=== PATIENT | male | born 1960 | race Caucasian/White ===

== ENCOUNTER → 2022-12-25 00:59 | Outpatient (CLI) | payer OTHER, SELFPAY ==
--- NOTE | 2022-12-25 07:30 | DI.RAD_ITS ---
Exam(s) XR FOOT LT COMPLETE EXAM: XR FOOT LT COMPLETE CLINICAL HISTORY: Painful lt foot bunion,M79.672,M21.612. TECHNIQUE: 2D digital imaging was performed of the left foot. Three images were obtained. AP, obli que and lateral views were obtained. COMPARISON: No exams were available for comparison FINDINGS: BONES: No acute fracture is present. No bony destructive lesion is seen. There is a plantar calcaneal spur. There is a hallux valgus deformity. JOINTS: No dislocation present. Degenerative changes are seen at the 1st MTP joint with joint space n arrowing and osteophytes present. SOFT TISSUE: Normal. IMPRESSION: Hallux valgus deformity. Degenerative changes of the 1st MTP joint. DATA REPOSITORY: RADIATION DOSE DELIVERED:
== END ==
PROVIDERS: PCP Family Medicine; Visit Provider Podiatrist
DX: M21.612 Bunion of left foot (principal); M79.672 Pain in left foot
CPT/HCPCS: 73630

== ENCOUNTER 2023-06-24 06:16 | Day surgery (SDC) | payer OTHER, SELFPAY ==
[2023-06-24] VITALS (9 sets, daily range): BP systolic 140–152; BP diastolic 73–95; PULSE 57–80; RESP 15–18; TEMP 36.1–36.6; O2SAT 95–98; BMI 23.4
--- NOTE | 2023-06-24 06:57 | ANES.PREOP_ITS ---
General Info Date of Service Date Performed: 06/24/23 Height: 5 ft 9 in Weight: 72.1 kg Body Mass Index (BMI): 23.4 Surgical Procedure: Operation Date: 06/24/23 07:40 Proposed Procedure Side Surgeon p Bunionectomy VS Arthrodesis 1st Metatarsophalangeal Joint, Possible Ania/Hammertoe Correction 2nd Toe Left Lizette Nicholson DPM Meds Allergies and Home Medications Allergies Allergy/AdvReac Type Severity Reaction Status Date / Time venom-honey bee Allergy Severe Anaphylaxis Verified 06/24/23 06:40 Home Medication Medication Instructions Recorded bupropion HCl 450 mg 24 hr tablet, 450 mg PO DAILY 01/02/23 extended release buspirone 10 mg tablet 10 mg PO TID PRN 01/02/23 epinephrine 0.3 mg/0.3 mL 0.3 mg IM Q5-15M PRN 01/02/23 injection, auto-injector escitalopram oxalate 10 mg tablet 20 mg PO DAILY 01/02/23 (Lexapro) lorazepam 1 mg tablet 0.5 mg PO BID PRN 01/02/23 Current Visit Medications: Current Medications Generic Name Dose Route Start Last Admin Trade Name Freq PRN Reason Stop Dose Admin Celecoxib 200 mg 06/24/23 06:00 Celecoxib 200 Mg Cap PO 06/24/23 23:59 PREOP AMI Gabapentin 300 mg 06/24/23 06:00 Gabapentin 300 Mg Cap PO 06/24/23 23:59 PREOP AMI Ringer's Solution 1,000 mls @ 30 mls/hr 06/24/23 06:00 IV 06/24/23 23:59 INFUSION AMI Cefazolin Sodium/Dextrose 2 gm in 50 mls @ 100 mls/hr 06/24/23 06:00 Ancef Duplex IVPB 06/24/23 23:59 PREOP AMI IV Miscellaneous Supplies 1 each 06/24/23 06:00 Iv Access IV 06/24/23 23:59 DIRECTED AMI Sodium Chloride 0 ml 06/24/23 06:00 Normal Saline Flush 10 Ml Syr IV 06/24/23 23:59 PRN PRN Sodium Chloride 0 ml 06/24/23 06:00 Normal Saline 10 Ml Vial IJ 06/24/23 23:59 DIRECTED PRN Sterile Water 0 ml 06/24/23 06:00 Water,Injection,Sterile 10 Ml Vial IJ 06/24/23 23:59 DIRECTED PRN PFSH Active Problems Active Problems: Problem Status Onset Code Chronic gout [id number] Mild alcohol use disorder F10.10 Depression F32.A Anxiety F41.9 Pain in left foot M79.672 Hammertoe of left foot M20.42 Hallux rigidus, left foot M20.22 Bunion, left foot M21.612 Surgical History Surgical History H/O hernia repair Tobacco Smoking/Tobacco Use Status: Never Alcohol Alcohol Intake: current Alcohol intake frequency: a few times a month Substance Use Substance use: Daily Substance use type: marijuana Vital Signs and Lab Results Vital Signs Most Recent Vital Signs in EMR: Most Recent Vital Signs Temp Pulse Resp BP Pulse Ox 36.3 C L 80 18 140/95 H 95 06/24/23 06:15 06/24/23 06:15 06/24/23 06:15 06/24/23 06:15 06/24/23 06:15 Lab Results 06/24/23 06:00 06/24/23 06:00 Blood Type / Crossmatch: 2 No Data to Display Complete Blood Count: 2 White Blood Count Pending 06/24/23 06:00 Red Blood Count Pending 06/24/23 06:00 Hemoglobin Pending 06/24/23 06:00 Hematocrit Pending 06/24/23 06:00 Platelet Count Pending 06/24/23 06:00 Complete Metabolic Panel: 2 Sodium Pending 06/24/23 06:00 Potassium Pending 06/24/23 06:00 Chloride Pending 06/24/23 06:00 Carbon Dioxide Pending 06/24/23 06:00 BUN Pending 06/24/23 06:00 Creatinine Pending 06/24/23 06:00 Est GFR (CKD-EPI 2020) Pending 06/24/23 06:00 Calcium Pending 06/24/23 06:00 Glucose Pending 06/24/23 06:00 Liver Function Panel: 2 No Data to Display Coagulation Panel: 2 No Data to Display Cardiac Panel: 2 No Data to Display Arterial Blood Gas: 2 No Data to Display Venous Blood Gas: 2 No Data to Display Pancreas Panel: 2 No Data to Display Thyroid Panel: 2 No Data to Display Infectious Disease: 2 No Data to Display Blood Cultures: 2 No Data to Display Toxicology Panel: 2 No Data to Display Anesthesia Assessment and Plan Anesthesia History Personal History: No History of Anesthesia Complications Family History: No Family History of Anesthesia Complications Exercise Tolerance Exercise Tolerance: Metabolic Equivalents>4 Cardiac & Pulmonary Exam Cardiac Exam: Normal S1/S2 Heart Sounds Pulmonary Exam: Clear Bilateral Breath Sounds Implantable Cardiac Device Does patient have a Pacemaker or an ICD?: No Airway Exam Known Difficult Airway: No Mallampati Class: 2 Mouth Opening: Normal (> 3cm) Thyromental Distance: Greater than 3 cm Facial Hair: Full Kee Neck Range of Motion: Full ROM Neck Circumference: Normal Teeth Condition: Normal Dentition ASA Classification ASA Score: ASA 2 Emergency Case?: No NPO Status NPO Status: NPO Clears >2 hours, Solids >8 hours Anesthesia Plan Resuscitation Status: Full Code Anesthesia Technique: General Anesthesia Airway Planned: LMA Monitors Used: Standard Monitors and SedLine
[2023-06-24] MEDS: Lactated Ringers 1,000 ML 30 ML IV (07:04)
[2023-06-24] MEDS: Celecoxib 200 MG CAP PO (07:05)
[2023-06-24] MEDS: Gabapentin 300 MG CAP PO (07:06)
[2023-06-24 07:12] LABS: Anion Gap 11.1 mmol/L (3-11); BUN 14 mg/dL (7-18); CO2 24.9 mmol/L (21.0-32.0); CREATININE 1.2 mg/dL (0.70-1.30); Calcium 8.6 mg/dL (8.5-10.1); Chloride 108 mmol/L (98-107); Estimated GFR 68.38 (mL/min/1.73m2); Glucose 104 mg/dL (74-106); Potassium 3.8 mmol/L (3.5-5.1); Sodium 144 mmol/L (136-145)
[2023-06-24 07:13] LABS: Abs Immature Grans 0.02 10^3/uL (0.0-0.06); Absolute Basophil Count 0.06 10^3/uL (0.0-0.2); Absolute Eosinophil Count 0.07 10^3/uL (0.0-0.7); Absolute Lymphocyte Count 1.54 10^3/uL (1.2-3.4); Absolute Monocyte Count 0.55 10^3/uL (0.1-0.8); Absolute Neutrophil Count 3.53 10^3/uL (1.2-6.7); Eosinophils % 1.2; HGB 14.3 g/dL (13.5-17.5); Immature Grans % 0.3; Lymphocytes % 26.7; MCH 31.2 pg (27.0-33.0); MCV 92 fL (80-95); MPV 9.2 fL (8.0-11.0); Monocytes % 9.5; Neutrophils % 61.3; Platelet Count 235 10^3/uL (130-400); RBC 4.58 10^6/uL (4.36-5.78); RDW 12.2 % (11.8-14.1); RDW-SD 41.3 fL; WBC 5.77 10^3/uL (4.4-10.8)
--- NOTE | 2023-06-24 07:46 | W.PREOPHP ---
Assessment and Plan Assessment and plan (1) Hallux rigidus, left foot: Status: Acute Assessment and plan: Patient was seen and evaluated today. He has a large hallux valgus deformity as well as hallux rigidus. We are planning to proceed with metatarsophalangeal joint arthrodesis to the left first metatarsophalangeal joint. I discussed potentially doing a Ania osteotomy with plantar plate repair and hammertoe correction to the left second toe. Currently, he denies any pain and would like to proceed without this procedure since he has no pain. I discussed the risk and benefits of this procedure as well. Planned procedure: Left first metatarsophalangeal joint arthrodesis, possible calcaneal graft harvest and implantation, possible Colton osteotomy to the left foot. I discussed the risks benefits and possible complications of the procedure including but not limited to pain, nerve pain, CRPS, infection, infection to the bone, nonhealing, delayed healing, nonunion, malunion, delayed union, wound dehiscence, bleeding, hematoma formation, seroma formation, hallux varus, hallux malleus, need for further surgery or amputation, poor outcome, DVT, PE, CRPS, stroke, [place] or with anesthesia. No change since last history and physical by his primary. Chart and imaging reviewed. All labs reviewed. No contraindications were noted to the procedure at this time. Patient has an appointment scheduled for postoperative evaluation on . (2) Bunion, left foot: Status: Acute (3) Pain in left foot: Status: Acute (4) Hammertoe of left foot: Status: Acute History of Present Illness Narrative: Patient here today for athrodesis to the left first metatarsophalangeal joint of the left foot. He notices pain to the left first metatarsophalangeal joint for significant period of time. Denies pain to the left second metatarsophalangeal joint or the hammertoe. Patient states he has been n.p.o. midnight. Denies any new medical or pedal complaints today. Recently had a prostate biopsy which went uneventfully and currently has no pain. Denies nausea vomiting chills fever diarrhea. Review of Systems Constitutional Constitutional: Denies chills, Denies excessive sweating, Denies fever(s), Denies night sweats and Denies weight loss Cardiovascular Cardiovascular: Denies chest pain with activity, Denies diaphoresis, Denies syncope and Denies dyspnea Respiratory Respiratory: Denies dyspnea Musculoskeletal Musculoskeletal: Reports arthralgias Comments: Left first metatarsophalangeal joint pain. Neurologic Neurologic: Denies syncope Endocrine Endocrine: Denies excessive sweating PFSH All Active Problems Post-op pain (Acute) Chronic gout (Acute) Mild alcohol use disorder (Acute) Depression (Chronic) Anxiety (Chronic) Pain in left foot (Acute) Hammertoe of left foot (Acute) Hallux rigidus, left foot (Acute) Bunion, left foot (Acute) Surgical History H/O hernia repair Family History Mother High cholesterol Father Hypertension Heart disease Stroke Colon cancer High cholesterol Social History Smoking/Tobacco Use Status: Never Smoking risk assessment performed?: Yes Alcohol Intake: current Alcohol Intake frequency: a few times a month Drug use: Daily Substance use type: marijuana Housing: house Do you feel safe at home: Yes Do you feel safe in your relationship?: Yes Meds Allergies and Home Medications Allergies Allergy/AdvReac Type Severity Reaction Status Date / Time venom-honey bee Allergy Severe Anaphylaxis Verified 06/24/23 06:40 Home Medications Medication Instructions Recorded Confirmed Type bupropion HCl 450 mg 24 hr tablet, 450 mg PO DAILY 01/02/23 06/24/23 History extended release buspirone 10 mg tablet 10 mg PO TID PRN 01/02/23 06/24/23 History epinephrine 0.3 mg/0.3 mL 0.3 mg IM Q5-15M PRN 01/02/23 06/24/23 History injection, auto-injector escitalopram oxalate 10 mg tablet 20 mg PO DAILY 01/02/23 06/24/23 History (Lexapro) lorazepam 1 mg tablet 0.5 mg PO BID PRN 01/02/23 06/24/23 History oxycodone-acetaminophen 7.5 mg-325 1 tab PO Q8H 3 days #9 tabs 06/24/23 Rx mg tablet (Percocet) Exam Resp Effort & Inspection: normal respiratory effort, able to speak in complete sentences and no cough Auscultation: clear to auscultation bilaterally Cardio Jugular venous pressure: no JVD Rate: regular rate Rhythm: regular rhythm Heart Sounds: S1 normal and S2 normal Pulses: posterior tibial pulses present and dorsalis pedis present Results Labs 06/24/23 06:55 06/24/23 06:55 Labs: Laboratory Results - last 24 hr 06/24/23 06:55 WBC 5.77 RBC 4.58 Hgb 14.3 Hct 42.0 MCV 92 MCH 31.2 MCHC 34.0 RDW 12.2 Plt Count 235 MPV 9.2 Immature Gran % 0.3 Neutrophils % 61.3 Lymphocytes % 26.7 Monocytes % 9.5 Eosinophils % 1.2 Basophils % 1.0 Nucleated RBC % 0.0 Absolute Neutrophils 3.53 Absolute Lymphocytes 1.54 Absolute Monocytes 0.55 Absolute Eosinophils 0.07 Absolute Basophils 0.06 Sodium 144 Potassium 3.8 Chloride 108 H Carbon Dioxide 24.9 Anion Gap 11.1 H BUN 14 Creatinine 1.2 Est GFR (CKD-EPI 2020) 68.38 Glucose 104 Calcium 8.6 Last Vital Signs Temp 97.3 F L 06/24/23 06:15 Pulse 80 06/24/23 06:15 Resp 18 06/24/23 06:15 BP 140/95 H 06/24/23 06:15 Pulse Ox 95 06/24/23 06:15
[2023-06-24] MEDS: ceFAZolin 2 GM/50 ML BAG IVPB (08:16)
[2023-06-24] MEDS: Lidocaine 1% Pres-Free 30 ML VIAL ×2 (08:44→09:41)
--- NOTE | 2023-06-24 11:05 | DI.RAD_ITS ---
Exam(s) XR FOOT LT LIMITED EXAM: XR FOOT LT LIMITED CLINICAL HISTORY: left foot, bunion. TECHNIQUE: 2D and realtime digital imaging was performed. COMPARISON: CR XR FOOT LT COMPLETE from 12/25/2022 FINDINGS: Hard copy images show bunionectomy and placement of a plate across the 1st MTP joint. Please see procedure note for details. Fluoro time: 105.4seconds RADIATION DOSE DELIVERED: Kar=1.52 mGy
--- NOTE | 2023-06-24 11:30 | DI.RAD_ITS ---
Exam(s) XR FOOT LT COMPLETE EXAM: XR FOOT LT COMPLETE CLINICAL HISTORY: Post op. TECHNIQUE: 2D digital imaging was performed. Three views. COMPARISON: CR XR FOOT LT COMPLETE from 12/25/2022 XR FOOT LT LIMITED from 06/24/2023 FINDINGS: A fixation plate is been placed across the 1st MTP joint for fusion. Bunionectomy at the 1st metatar rafiq head. Adjacent soft tissue swelling. Heel spur. IMPRESSION: Unremarkable radiographs of the left foot. Postsurgical changes of the great toe. DATA REPOSITORY: RADIATION DOSE DELIVERED:
--- NOTE | 2023-06-24 11:48 | W.ANESPOSTOP ---
Postoperative Evaluation Date, Time and Location Date Performed: 06/24/23 Time Performed: 11:48 Patient Location: PACU Vital Signs Most Recent Imported Vital Signs: Most Recent Vital Signs Temp Pulse Resp BP Pulse Ox 36.1 C L 66 16 150/77 H 98 06/24/23 11:30 06/24/23 11:30 06/24/23 11:30 06/24/23 11:30 06/24/23 11:30 Pain Score Most Recent Pain Score: Most Recent Pain Score Pain Level 0 06/24/23 11:30 Assessment Mental Status: Awake (Alert & Oriented to Patient Baseline) Airway and Respiratory Function: Patent airway with normal (patient baseline) respiratory exam Cardiovascular Function: Hemodynamically Stable Hydration Status: Adequately Hydrated Nausea & Vomiting: No Nausea or Vomiting Pain: Pt. Denies Any Pain Peripheral Nerve Block: Patient did not receive a nerve block
--- NOTE | 2023-06-24 12:32 | ROE_ITS ---
Date of service: 06/24/23 Time of Service: 08:00 Operative Note Operative Note DATE OF PROCEDURE: 06/24/23 PRE-OP DIAGNOSIS: Hallux rigidus left foot POST-OP DIAGNOSIS: same PROCEDURE: First metatarsophalangeal joint arthrodesis, left foot SURGEON: Lizette Nicholson ANESTHESIA TYPE: Local By Surgeon Refer to Anesthesia Record ESTIMATED BLOOD LOSS: 20 TOURNIQUET TIME: 94 COMPLICATIONS: None Patient was transported to: PACU Patient's condition: stable Implants: Arthrex MaxForce MTP compression plate, Arthrex 3 mm flat head cortical screw 18 mm x 1, Arthrex 3 mm low-profile screws, KRISTY, titanium 12 mm x 3, 16 mm x 1 Indications: This is a 62-year-old male patient with pain to the left first metatarso phalangeal joint. Patient has exhausted all conservative treatment options at this time. I discussed the benefits of the procedure including the risks including but not limited to pain, nerve pain, CRPS, delayed healing, nonhealing, nonunion, malunion, delayed union, wound dehiscence, infection, infection to bone, need for further surgery or amputation, poor results, dorsiflex toe, plantarflex toe, need for further surgery or amputation, risk for DVT, PE, stroke, [place] or even with anesthesia. Patient understands and agrees. No guarantees or warranties were made or implied. Patient agreed to the procedure. Consent form was signed reviewed in chart. No contraindications noted to the procedure. Findings: Extensive cartilage damage to the right first metatarsal head, tightness of the joint capsule Procedure Description: Patient was brought to the operating room placed on the operating table in supine position. Following sedation, local anesthesia was obtained using 20 mL of 1% lidocaine plain. An ankle tourniquet was applied to the patient's left ankle.. The left foot was then scrubbed prepped and draped in the usual aseptic manner. The left lower extremity was then exsanguinated using an Esmarch and the tourniquet was then inflated. Attention was then directed to the dorsal aspect of the left first metatarsal phalangeal joint, an approximately 7 cm linear longitudinal incision was planned medial and parallel to the tendon of the extensor hallucis longus. Incision was then made using a sterile #15 blade. Incision was deepened through skin and subcutaneous tissue using sharp and blunt dissection. Care was taken to identify and retract all vital neurovascular structures. All bleeders were ligated and cauterized as necessary. Next, a linear longitudinal incision was made and a capsulotomy was performed a little over the dorsal aspect of the first metatarsophalangeal joint. The periosteal and capsular structures were then carefully dissected free and reflected medially and laterally thus exposing the head of the first metatarsal. Next, a guidewire was placed centrally in the head of the first metatarsal, this was confirmed using intraoperative fluoroscopy. Next a reamer was used to remove all cartilage from the first metatarsal head. This step was then repeated at the proximal phalanx. The guidewire was then removed. Next using a sagittal saw the dorsal medial prominences were then removed from the base of the proximal phalanx and the head of the metatarsal a rongeur was used to remove any remaining prominences. Next, a guidewire was used to fenestrate either aspect of the joint. At this time the head of the metatarsal and the base of the proximal phalanx were compressed and held together in place with a K wire for temporary fixation intraoperative fluoroscopy was used to facilitate placement. The tourniquet was then deflated at 94 minutes at this time. Next an Arthrex plate was then applied with screws following manufactures guidelines. Positioning was then confirmed using intraoperative fluoroscopy and was noted to be appropriate although slightly dorsiflexed with some rotation residual in the hallux. The incision was then flushed with copious amounts of sterile saline. The periosteal and capsular structures were then reapproximated using 3-0 Vicryl. Subcutaneous tissue was then closed with 4-0 Vicryl. Skin edges were reapproximated using 4-0 nylon. Upon completion of the procedure, the incision was then dressed with Xeroform gauze, 4 x 4, Kerlix and an Flaco wrap. The patient tolerated the procedure and anesthesia well with vital signs stable and vascular status intact to the left foot. Patient notes transferred to PACU for further monitoring. Patient to remain strictly nonweightbearing to the left lower extremity with the use of a boot. Postoperative and proximal structures were provided to the patient. Patient was prescribed Percocet for 3 days postoperatively. Patient has appointment with [facility] on .
--- NOTE | 2023-07-22 10:10 | W.PM.DSUDISC ---
Date of service: 06/24/23 Time of Service: 07:30 Discharge Plan Disposition Patient Disposition: Home Condition: Stable Discharge Details Attending Provider: Lizette Nicholson Primary Care Provider: Matheus Kumar Home Meds and New Rx's Prescriptions: No Action epinephrine 0.3 mg/0.3 mL auto-injector 0.3 mg IM Q5-15M PRN Rx Instructions: do not exceed 3 doses per episode buspirone 10 mg tablet 10 mg PO TID PRN bupropion HCl 450 mg tablet extended release 24 hr 450 mg PO DAILY lorazepam 1 mg tablet 0.5 mg PO BID PRN escitalopram oxalate [Lexapro] 10 mg tablet 20 mg PO DAILY bupropion HCl 450 mg tablet extended release 24 hr 450 mg PO DAILY Discharge Instructions Stand Alone Forms: Anesthesia Discharge Inst., Podiatry Instructions-DSU, Jennifer Garcia (DSU) Remove Dressings/Wound Care:: Do Not Remove Diet:: Normal Diet Discharge Data Discharge Date/Time-TO BE ENTERED AT DEPARTURE: 06/24/23 13:40 DS: Diagnosis Discharge Diagnosis (1) Hallux rigidus, left foot: Status: Acute (2) Bunion, left foot: Status: Acute (3) Pain in left foot: Status: Acute (4) Hammertoe of left foot: Status: Acute
== END 2023-06-24 13:40 | disposition home or self-care (01) ==
PROVIDERS: PCP Family Medicine; Visit Provider Podiatrist
PROC: (CPT 28750; principal; 2023-06-24 07:30)
DX: M20.22 Hallux rigidus, left foot; M20.42 Other hammer toe(s) (acquired), left foot; M21.612 Bunion of left foot
CPT/HCPCS: 28750; 00123; 36415; 80048; 73620; 73630; 85014; 85018; 85025; J0131; J0665; J0690; J1100; J2001; J2250; J2371; J2405; J2704

== ENCOUNTER → 2023-07-04 01:44 | Outpatient (CLI) | payer OTHER, SELFPAY ==
--- NOTE | 2023-07-04 11:23 | DI.RAD_ITS ---
Exam(s) XR FOOT LT COMPLETE EXAM: XR FOOT LT COMPLETE CLINICAL HISTORY: Evaluate for fusion/postoperative changes,bunion lt foot, m21.612,hallux. TECHNIQUE: 2D digital imaging was performed of the left foot. Three images were obtained. AP, obli que and lateral views were obtained. COMPARISON: CR XR FOOT LT COMPLETE from 12/25/2022 CR XR FOOT LT COMPLETE from 06/24/2023 FINDINGS: BONES: No acute fracture is present. No bony destructive lesion is seen. There is a small plantar clovis caneal spur. There are again seen postsurgical changes of a bunionectomy. The joint space is still visualized but less apparent compared to the prior examination. JOINTS: No dislocation present. The joint spaces are otherwise well maintained. SOFT TISSUE: There has been a decrease in the soft tissue swelling around the 1st MTP joint. IMPRESSION: Stable postsurgical changes of a 1st MTP joint fusion. DATA REPOSITORY: RADIATION DOSE DELIVERED:
== END ==
PROVIDERS: PCP Family Medicine; Visit Provider Podiatrist
DX: M20.22 Hallux rigidus, left foot (principal); M21.612 Bunion of left foot; Z98.890 Other specified postprocedural states
CPT/HCPCS: 73630

== ENCOUNTER → 2023-07-25 00:03 | Outpatient (CLI) | payer OTHER, SELFPAY ==
--- NOTE | 2023-07-25 14:39 | DI.RAD_ITS ---
Exam(s) XR FOOT LT COMPLETE EXAM: XR FOOT LT COMPLETE CLINICAL HISTORY: Post op,eval for fusion,lt bunion,hallux rigidus,m20.22,m21.612. TECHNIQUE: 2D digital imaging was performed. Three views. COMPARISON: CR XR FOOT LT COMPLETE from 07/04/2023 FINDINGS: BONES: There has been no change in the alignment of the hardware spanning the 1st MTP joint. Bunione ctomy site appears unchanged. No bony destructive lesion is seen. JOINTS: No dislocation present. SOFT TISSUE: Mild swelling around 1st MTP joint. IMPRESSION: Stable postsurgical appearance. DATA REPOSITORY: RADIATION DOSE DELIVERED:
== END ==
PROVIDERS: PCP Family Medicine; Visit Provider Podiatrist
DX: Z98.890 Other specified postprocedural states (principal)
CPT/HCPCS: 73630

== ENCOUNTER → 2023-08-07 02:02 | Outpatient (CLI) | payer OTHER, SELFPAY ==
--- NOTE | 2023-08-07 08:00 | DI.RAD_ITS ---
Exam(s) XR FOOT LT COMPLETE EXAM: XR FOOT LT COMPLETE CLINICAL HISTORY: Post op,hallux rigidus,lt foot,m20.22. TECHNIQUE: 2D digital imaging was performed. Three views. COMPARISON: CR XR FOOT LT COMPLETE from 07/25/2023 FINDINGS: BONES: Hardware is again noted at the dorsal aspect of the 1st MTP joint. Bunionectomy site appears unchanged. no acute fracture is present. No bony destructive lesion is seen. Heel spurs again not ed. JOINTS: No dislocation present. SOFT TISSUE: Mild soft tissue swelling adjacent to the 1st metatarsal head. IMPRESSION: Stable postsurgical appearance. DATA REPOSITORY: RADIATION DOSE DELIVERED:
== END ==
PROVIDERS: PCP Family Medicine; Visit Provider Podiatrist
DX: M20.22 Hallux rigidus, left foot (principal); Z98.890 Other specified postprocedural states
CPT/HCPCS: 73630

== ENCOUNTER → 2023-08-22 02:44 | Outpatient (CLI) | payer OTHER, SELFPAY ==
--- NOTE | 2023-08-22 12:15 | DI.RAD_ITS ---
Exam(s) XR FOOT LT COMPLETE EXAM: XR FOOT LT COMPLETE CLINICAL HISTORY: post op, PAIN, HALLUX RIGIDUS, G89.18, M20.22. TECHNIQUE: 2D digital imaging was performed. COMPARISON: CR XR FOOT LT COMPLETE from 08/07/2023 FINDINGS: 3 views Again noted is dorsal fusion hardware at the great toe metatarsophalangeal joint which appears stable . No loosening and no evidence of osteomyelitis. No other osseous findings. Bone density normal. Small inferior calcaneal spur again noted. IMPRESSION: Stable appearance DATA REPOSITORY: RADIATION DOSE DELIVERED:
== END ==
PROVIDERS: PCP Family Medicine; Visit Provider Podiatrist
DX: G89.18 Other acute postprocedural pain (principal); M20.22 Hallux rigidus, left foot
CPT/HCPCS: 73630

== ENCOUNTER → 2023-09-17 01:55 | Outpatient (CLI) | payer OTHER, SELFPAY ==
--- NOTE | 2023-09-17 13:13 | DI.RAD_ITS ---
Exam(s) XR FOOT LT COMPLETE EXAM: XR FOOT LT COMPLETE CLINICAL HISTORY: ? CONSOLIDATION,POST OP PAIN,LT FOOT BUNION,LT HALLUX RIGIDUS.G89.18. TECHNIQUE: 2D digital imaging was performed of the left foot. Three images were obtained. AP, obli que and lateral views were obtained. COMPARISON: CR XR FOOT LT COMPLETE from 08/22/2023 FINDINGS: BONES: No acute fracture is present. No bony destructive lesion is seen. There is a moderate-sized pl miguelangel calcaneal spur. JOINTS: No dislocation present. There again seen postsurgical changes of a 1st MTP joint effusion. M ild degenerative changes are seen at the talonavicular joint. SOFT TISSUE: Normal. IMPRESSION: Stable findings of a 1st MTP joint fusion. No acute abnormality. DATA REPOSITORY: RADIATION DOSE DELIVERED:
== END ==
PROVIDERS: PCP Family Medicine; Visit Provider Podiatrist
DX: G89.18 Other acute postprocedural pain (principal); M20.22 Hallux rigidus, left foot; M21.612 Bunion of left foot
CPT/HCPCS: 73630

== ENCOUNTER 2023-11-14 01:33 | Outpatient (CLI) | payer OTHER, SELFPAY ==
--- NOTE | 2023-11-14 07:00 | DI.RAD_ITS ---
Exam(s) XR FOOT LT COMPLETE EXAM: XR FOOT LT COMPLETE CLINICAL HISTORY: Consolidation?, HALLUX RIGIDUS LT FOOT, BUNION, PAIN, HAMMERTOE, M20.22. TECHNIQUE: 2D digital imaging was performed. Three views. COMPARISON: CR XR FOOT LT COMPLETE from 09/17/2023 FINDINGS: Hardware is again noted across the 1st MTP joint. Prior bunionectomy. Stable appearance. Heel spur again noted. IMPRESSION: Stable postsurgical appearance. DATA REPOSITORY: RADIATION DOSE DELIVERED:
== END 2023-11-14 01:53 ==
LOC: DI 01:33
PROVIDERS: PCP Family Medicine; Visit Provider Podiatrist
DX: M20.22 Hallux rigidus, left foot (principal); M21.612 Bunion of left foot; M79.672 Pain in left foot; M20.42 Other hammer toe(s) (acquired), left foot
CPT/HCPCS: 73630

== ENCOUNTER 2024-06-17 11:50 | Outpatient (CLI) | payer OTHER, SELFPAY ==
--- NOTE | 2024-06-17 11:16 | DI.RAD_ITS ---
Exam(s) XR FOOT LT COMPLETE EXAM: XR FOOT LT COMPLETE CLINICAL HISTORY: healed? hardware issues?, hallux rigidus lt foot, M20.22. TECHNIQUE: 2D digital imaging was performed of the left foot. Three images were obtained. AP, obli que and lateral views were obtained. COMPARISON: CR XR FOOT LT COMPLETE from 11/14/2023 FINDINGS: BONES: No acute fracture is present. No bony destructive lesion is seen. There is a plantar calcaneal spur. JOINTS: No dislocation present. There are postsurgical changes of a fusion of the 1st MTP joint. The orthopedic hardware appears intact. No suspicious lucencies are seen in or about the orthopedic florencio dware. The 1st MTP joint is fused. SOFT TISSUE: Normal. IMPRESSION: No acute abnormality. DATA REPOSITORY: RADIATION DOSE DELIVERED:
== END 2024-06-17 12:10 ==
LOC: DI 11:54
PROVIDERS: PCP Family Medicine; Visit Provider Podiatrist
DX: M20.22 Hallux rigidus, left foot (principal)
CPT/HCPCS: 73630